=== PATIENT | female | born 1955 | race Caucasian/White ===

== ENCOUNTER 2024-10-02 06:11 | Day surgery (SDC) | payer MEDICARE, SELFPAY ==
[2024-10-02] VITALS (15 sets, daily range): BP systolic 136–149; BP diastolic 65–81; PULSE 56–74; RESP 14–18; TEMP 36.4–36.7; O2SAT 91–98; BMI 40.7
[2024-10-02] MEDS: LACTATED RINGERS 1000 ML 1,000 ML 100 ML IV ×2 (06:45→08:47)
[2024-10-02] MEDS: SODIUM CHLORIDE 0.9 % (FLUSH) 10 ML SYRINGE IVF (06:52)
--- NOTE | 2024-10-02 07:07 | W.PM.H&PU ---
History & Physical Update History & Physical Update H&P Reviewed and patient assessed: No changes noted
--- NOTE | 2024-10-02 07:10 | P.GSOP_ITS ---
Operative Note Date of procedure: 10/02/24 Pre-op diagnosis: 1. Symptomatic cholelithiasis. 2. Extreme obesity with BMI of 46. Post-op diagnosis: Same Type of Procedure: 1. Laparoscopic cholecystectomy Indications: 68-year-old female with BMI of 46 presented to clinic for evaluation of epigastric pain. Patient was recently seen in the emergency room in [place] after she developed a painful episode. Patient had previous similar episodes at home but was not that severe. During her workup in the emergency room her WBC was normal. Her alkaline phosphatase was elevated at 129, AST and ALT were mildly elevated with total bilirubin of 0.7 and direct bilirubin of 0.6. An abdominal CT was obtained that showed cholelithiasis with mild gallbladder wall thickening. There was a stone noted in the cystic duct. A gallbladder ultrasound was obtained then that showed gallbladder wall thickening with common bile duct of 10.7 mm. Patient was recommended to have laparoscopic cholecystectomy but because she was traveling, she decided to come home. She was placed on antibiotics. When she came to clinic, her pain continued to be du ll but significantly improved. Patient was eating a bland diet. She completed her antibiotics. On clinical exam she had mild tenderness to palpation in epigastrium and right upper quadrant but her Hook sign was negative. Given the elevation of her common bile duct size, MRCP was recommended. MRCP showed that the size of the common bile duct returned to normal with no other abnormalities. Given patient's clinical history and her recurrent episodes of pain, laparoscopic cholecystectomy was recommended. The procedure was discussed in detail. The risks associated procedure including infection, bleeding, injury to intra-abdominal organs, and injury to the common bile duct were all discussed with the patient, and she agreed to proceed. Procedure Description: After discussing the risks and benefits of the procedure, the patient signed informed consent.? The operative site was marked and the patient was brought to the operating room and placed on the operating table in supine position.? Care was taken to pad the patient's pressure points.?? The patient was then intubated by anesthesia.?? The operative site was then prepped and draped in the usual sterile fashion.? A time-out was then performed. A 5-mm laparoscopy port was placed in the left upper quadrant guided by a 5-mm laparoscope placed into a translucent trochar.~ Passage through the layers of the abdominal wall was visualized with the laparoscope.~ A pneumoperitoneum was established. A 0-degree 5-mm laparoscope was advanced into the abdomen. The abdomen was briefly surveyed, and no adhesions were noted. A 10-mm port were placed infraumbilically and two more 5 mm ports were placed on the right under direct visualization by laparoscope. The camera was then changed to 10 mm 30- degree scope and placed into the abdomen through the 10 mm port. The left upper quadrant port entrance was examined and no injury to intra-abdominal organs was identified. The gallbladder was identified after retracting the omentum caudad, the fundus grasped and retracted cephalad. Omentum was adherent to the anterior wall of the gallbladder. These adhesions were taken down with cautery. Visualization of the gallbladder infundibulum was difficult due to patient's abundance of omental fat. The infundibulum was grasped and retracted laterally, exposing the peritoneum overlying the triangle of Calot. This was then divided and exposed in a blunt fashion and with hook cautery. Common bile duct was not identified but care was taken not to injure it. Cystic artery was identified and tissues around it were dissected off. I first placed proximal and distal clips on the cystic artery to aid in visualization of the medial tissues of the cystic duct. The artery was divided between the clips. Peritoneum and soft tissues were dissected in the triangle of Calot bluntly with [place] dissector and hook cautery. The cystic duct was clearly going into the gallbladder but only the most proximal cystic duct/inferior infundibulum was seen. Since visualization of infundibulum and triangle of Calot was already difficult with abundance of omental fat despite changing the position and placing the patient in reverse Trendelenburg even further, I elected to stay close to the gallbladder infundibulum and not dissect further into the portal tissues. 5 mm clips were placed on the distal infundibulum however, they did not go across the infundibulum. Two clips were placed on the gallbladder and the gallbladder was divided at the level of distal infundibulum with scissors. I then attempted to place 0-0 PDS endoloop just distal to the infundibular clips on the cystic duct stump. This was very difficult because of omental fat coming into the surgical field. This was difficult due to patient's habitus. I elected to place an additional 5 mm port in the right upper quadrant. This was done under direct visualization. I then finally was able to place 0-0 Vicryl Endoloop just distal to the clips on the cystic duct stump. I then also placed 0-0 PDS endoloop in the same location just distal to the cystic duct stump clips. No bleeding was seen in the surgical field. The sutures were in good position with no encroachment into the portal tissues. Omental fat was tucked into the gallbladder fossa. The gallbladder was dissected from the liver bed in retrograde fashion using hookcautery. The gallbladder was placed into an Endo-Catch bag and removed through the infraumbilical incision. The fascia of the infraumbilical incision was then closed with 2 interrupted 0-0 vicryl sutures using Gavino Samia needle under direct visualization. Pneumoperitoneum was completely reduced after viewing removal of the trocars under direct vision. The skin was then closed with 4-0 monocryl and steristrips were applied. Instrument, sponge, and needle counts were correct at closure and at the conclusion of the case. The patient was transferred to PACU in stable condition. ? The patient was then woken and transported to the recovery area in stable condition. ? Findings: No acute inflammation surrounding the gallbladder, omental adhesions to the gallbladder suggestive of chronic inflammation. Abundance of omental fat making the surgery difficult. Anesthesia: GETA Surgeon: Mynor Booth MD Estimated blood loss (mL): 5 Specimen: Gallbladder Condition: stable Disposition: PACU
[2024-10-02] MEDS: SCOPOLAMINE 1 MG/3 DAY PATCH 1 PATCH TRANSDERMA (07:26)
[2024-10-02] MEDS: CEFAZOLIN 1 GM inj IVP (07:38)
[2024-10-02] MEDS: BUPIVACAINE 0.25% 30 ML INJECTION (07:55)
[2024-10-02] MEDS: LIDOCAINE 1%-EPI 1:100,000 20 ML INFILTRATI (07:55)
--- NOTE | 2024-10-02 09:15 | P.ANES_ITS ---
Anesthesia Charges Start Date/Time Anesthesia Start Date: 10/02/24 Anesthesia Start Time: 07:26 Stop Date/Time Anesthesia Stop Date: 10/02/24 Anesthesia Stop Time: 09:12 Coding CPT Codes CPT Codes: ANESTH SURG UPPER ABDOMEN - 94082 ([id number]) P3 - PATIENT W/SEVERE SYS DISEASE, QK - STAFF ANTISUBMARINE OFFICER 2-4 CNCRNT ANES PROC, QX - TOOLMAKER SVC W/ MD MED DIRECTION
--- NOTE | 2024-10-02 09:15 | W.ANESCHARGE ---
Anesthesia Charges Start Date/Time Anesthesia Start Date: 10/02/24 Anesthesia Start Time: 07:26 Stop Date/Time Anesthesia Stop Date: 10/02/24 Anesthesia Stop Time: 09:12 Coding CPT Codes CPT Codes: ANESTH SURG UPPER ABDOMEN - 28534 ([id number]) P3 - PATIENT W/SEVERE SYS DISEASE, QK - SLACKMAN 2-4 CNCRNT ANES PROC, QX - STOCK ANALYST SVC W/ MD MED DIRECTION
--- NOTE | 2024-10-02 10:04 | P.ANES_ITS ---
Anesthesia Charges Start Date/Time Anesthesia Start Date: 10/02/24 Anesthesia Start Time: 07:26 Stop Date/Time Anesthesia Stop Date: 10/02/24 Anesthesia Stop Time: 09:12 Coding CPT Codes CPT Codes: ANESTH SURG UPPER ABDOMEN - 50223 ([id number]) QK - ELECTROTYPER APPRENTICE 2-4 CNCRNT ANES PROC, QX - DOOR CORE ASSEMBLER SVC W/ MD MED DIRECTION, P3 - PATIENT W/SEVERE SYS DISEASE
--- NOTE | 2024-10-02 10:04 | W.ANESCHARGE ---
Anesthesia Charges Start Date/Time Anesthesia Start Date: 10/02/24 Anesthesia Start Time: 07:26 Stop Date/Time Anesthesia Stop Date: 10/02/24 Anesthesia Stop Time: 09:12 Coding CPT Codes CPT Codes: ANESTH SURG UPPER ABDOMEN - 19426 ([id number]) QK - SPRAY GUN STRIPER 2-4 CNCRNT ANES PROC, QX - SCREEN EXAMINER SVC W/ MD MED DIRECTION, P3 - PATIENT W/SEVERE SYS DISEASE
== END 2024-10-02 11:12 | disposition home or self-care (01) ==
PROVIDERS: PCP Family Medicine; Visit Provider Surgery
PROC: 0FT44ZZ Resection of Gallbladder, Percutaneous Endoscopic Approach (ICD-10-PCS; CPT 47562; principal; 2024-10-02 07:30)
DX: K80.10 Calculus of gallbladder with chronic cholecystitis without obstruction (principal); E66.9 Obesity, unspecified; Z68.41 Body mass index [BMI] 40.0-44.9, adult; F41.8 Other specified anxiety disorders; G47.33 Obstructive sleep apnea (adult) (pediatric)
CPT/HCPCS: 47562; 00790; 88304; A9270; J0665; J0690; J1100; J1630; J1885; J2250; J2405; J2704; J2710; J3010; J3490; J7120